=== PATIENT | male | born 1990 | race Hispanic/Latino ===

== ENCOUNTER 2017-11-21 18:34 | Emergency (ER) | payer OTHER | END 2017-11-21 18:44 | disposition home or self-care (01) | LOC: EDH 18:34 | DX: R52 Pain, unspecified (principal); Z72.0 Tobacco use ==

== ENCOUNTER 2017-11-22 04:16 | Emergency (ER) | payer OTHER ==
[2017-11-22] MEDS ORDERED: ACETAMINOPHEN-CODEINE ELIXIR 5 ML UDCUP ONE (04:27)
== END 2017-11-22 04:35 | disposition home or self-care (01) ==
LOC: EDH 04:16
DX: Z02.89 Encounter for other administrative examinations (principal); Z72.0 Tobacco use